=== PATIENT | female | born 2000 | race Caucasian/White ===

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

== ENCOUNTER → 2022-04-30 | Outpatient (REF) | payer OTHER ==
[2022-04-30 21:06] LABS: GC DNA AMPLIFICATION NEGATIVE (NEGATIVE)
== END ==
LOC: M LAB REF 16:53
DX: Z00.00 Encounter for general adult medical examination without abnormal findings (principal)